=== PATIENT | male | born 1945 | race African-American/Black ===

== ENCOUNTER 2017-08-27 12:58 | Emergency (ER) | payer OTHER ==
[2017-08-27 13:20] VITALS: BP 148/75; PULSE 90; TEMP 98.4; BMI 24.7
--- NOTE | 2017-08-27 15:17 | PDOC ---
History of Present Illness - General Chief Complaint: Pain Stated Complaint: LT LEG PAIN Time Seen by Provider: 08/27/17 14:35 History Source: Patient Exam Limitations: No Limitations - History of Present Illness Initial Comments: 08/27/17 15:11 c/o left ankle pain for 2 days, may have twisted it. Pt reports twisted ankle 2 months ago at work, may have re-inured. Pt denies fall or fever or chills. no PMHX. Occurred: reports: yesterday Severity: Yes: mild Lower Extremity Pain Location: left: ankle (no swelling no deformity ) Past History - Past Medical History Allergies/Adverse Reactions: Allergies Allergy/AdvReac Type Severity Reaction Status Date / Time No Known Allergies Allergy Verified 08/27/17 13:17 Home Medications: Ambulatory Orders NK [No Known Home Medication] 08/27/17 COPD: No Other medical history: DENIES. - Suicide/Smoking/Psychosocial Hx Smoking History: Never smoked Have you smoked in the past 12 months: No Information on smoking cessation initiated: No Review of Systems - Review of Systems Able to Perform ROS?: Yes Is the patient limited Italian proficient: No Constitutional: No: Symptoms Reported HEENTM: No: Symptoms Reported Respiratory: No: Symptoms reported Cardiac (ROS): No: Symptoms Reported ABD/GI: No: Symptoms Reported : No: Symptoms Reported Musculoskeletal: Yes: Symptoms Reported *Physical Exam - Vital Signs Last Vital Signs Temp Pulse Resp BP Pulse Ox 98.4 F 90 19 148/75 98 08/27/17 13:17 08/27/17 13:17 08/27/17 13:17 08/27/17 13:17 08/27/17 13:17 - Physical Exam General Appearance: Yes: Nourished, Appropriately Dressed HEENT: positive: EOMI, KHLOE Musculoskeletal: positive: Normal Inspection Extremity: positive: Normal Capillary Refill, Normal Inspection, Normal Range of Motion, Other (non tender neg ttp pain is with walking to the posterior ankle ). negative: Tender Integumentary: positive: Normal Color, Dry, Warm Neurologic: positive: Fully Oriented, Alert, Normal Mood/Affect, Normal Response , Motor Strength 5/5 Procedures - Splinting German Bandage: yes, 3" (left ankle ) ED Treatment Course - RADIOLOGY Radiology Studies Ordered: Category Date Time Status ANKLE & FOOT-LEFT* [RAD] Stat Radiology 08/27/17 14:36 Taken Medical Decision Making - Medical Decision Making 08/27/17 15:17 cc: left ankle pain will get xray to r/o fracture no swelling no deformity previous left ankle injury 2 months ago pt has no calf swelling or calf pain no redness or warmth to the extremity nv intact *DC/Admit/Observation/Transfer Diagnosis at time of Disposition: Ankle pain, left - Discharge Dispostion Disposition: HOME Condition at time of disposition: Good - Referrals Referrals: Clemente Sepulveda MD [Staff Physician] - - Patient Instructions Additional Instructions: please follow with the orthopedist next week and bring the xray report with you keep the german wrap in place except to bathe you can elevate the ankle and apply warm compresses to the area take tylenol for pain as needed - Post Discharge Activity
== END 2017-08-27 16:22 | disposition home or self-care (01) ==
LOC: JERFT 12:58
DX: M25.571 Pain in right ankle and joints of right foot (principal)
CPT/HCPCS: 73610-TC-LT; 73630-TC-LT; 99281-25

== ENCOUNTER 2022-12-30 13:43 | Observation (INO) | payer OTHER ==
[2022-12-30] MEDS ORDERED: MAG HYDROX/AL HYDROX/SIMETH 30 ML UNIT-DOSE CUP PO ONE (14:25)
[2022-12-30] MEDS ORDERED: FAMOTIDINE 20 MG/50 ML IVPB 20 MG/50 ML MG IVPB ONE ×2 (14:25→14:36)
[2022-12-30] MEDS ORDERED: MAG HYDROX/AL HYDROX/SIMETH 30 ML UNIT-DOSE CUP ONE (14:36)
[2022-12-30] MEDS ORDERED: TRIMETHOBENZAMIDE HCL 200MG/2ML INJ IM ONE ×2 (14:39→14:47)
[2022-12-30] MEDS: LACTATED RINGERS SOLUTION 1,000 ML/1,000 ML INFUS.BAG IV SCH (14:42)
[2022-12-30 15:21] LABS: BASO % 0.2 % (0-2.0); EOS % 0.5 % (0-4.5); HEMATOCRIT 36.1 % (35.4-49); HEMOGLOBIN 12.8 GM/dL (11.7-16.9); LYMPH % 23.4 % (8-40); MCH 35.1 pg (25.7-33.7); MCHC 35.4 g/dl (32.0-35.9); MEAN CELL VOLUME 99.1 fl (80-96); MEAN PLT VOLUME 8.2 fl (7.5-11.1); MONO % 10.8 % (3.8-10.2); NEUT % 65.1 % (42.8-82.8); PLATELET COUNT 193 10^3/uL (134-434); RBC 3.64 M/mm3 (4.00-5.60); RDW 13.3 % (11.9-15.9); WHITE BLOOD COUNT 5.5 K/mm3 (4.0-10.0)
[2022-12-30 15:28] LABS: INR 1.02 (0.83-1.09); PROTHROMBIN TIME (PATIENT) 11.8 SEC (9.7-13.0)
[2022-12-30 15:30] LABS: ACTIVATED PTT 32.2 SECONDS (25.2-36.5)
[2022-12-30 15:40] LABS: CHLORIDE 83 mmol/L (98-107); SODIUM 126 mmol/L (136-145)
[2022-12-30 15:42] LABS: CALCIUM 8.6 mg/dL (8.5-10.1)
[2022-12-30 15:43] LABS: ALBUMIN 3.6 g/dl (3.4-5.0); BLOOD UREA NITROGEN 5.5 mg/dL (7-18); CO2 32 mmol/L (21-32); GLUCOSE,RANDOM 112 mg/dL (74-106); LIPASE 226 U/L (73-393); MAGNESIUM 1.1 mg/dL (1.8-2.4)
[2022-12-30 15:46] LABS: CREATININE 0.8 mg/dL (0.55-1.3); SGOT/AST 85 U/L (15-37); SGPT/ALT 52 U/L (13-61)
[2022-12-30 15:47] LABS: BILIRUBIN,TOTAL 1.2 mg/dL (0.2-1)
[2022-12-30 15:48] LABS: TOT PROT 7.5 g/dl (6.4-8.2)
[2022-12-30] MEDS ORDERED: MAGNESIUM SULF 50% (8.12 MEQ/2 ML-1 GM VIAL) IVPB ONE (15:48)
[2022-12-30 15:49] LABS: ALK PHOS 100 U/L (45-117)
[2022-12-30 15:57] LABS: PH,URINE 7.5 (5.0-8.0); URINE APPEARANCE CLEAR; URINE BILIRUBIN NEGATIVE (NEGATIVE); URINE COLOR YELLOW; URINE GLUCOSE (UA) NEGATIVE (NEGATIVE); URINE KETONE NEGATIVE (NEGATIVE); URINE LEUK ESTERASE NEGATIVE (NEGATIVE); URINE NITRITE NEGATIVE (NEGATIVE); URINE PROTEIN NEGATIVE (NEGATIVE); URINE UROBILINOGEN 0.2 mg/dL (0.2-1.0)
[2022-12-30 16:00] LABS: ANION GAP 11 MMOL/L (8-16)
[2022-12-30] MEDS ORDERED: CEFTRIAXONE 1,000 MG in DEXTROSE 5%-WATER - 50 ML IVPB ONE (16:12)
[2022-12-30] MEDS ORDERED: DOXYCYCLINE INJECTION 100 MG in DEXTROSE 5%-WATER 100 ML IVPB ONE (16:13)
[2022-12-30] MEDS ORDERED: MAGNESIUM SULFATE IN WATER 2 GM/50 ML IVPB IVPB ONE (16:15)
[2022-12-30] MEDS ORDERED: POTASSIUM CHLORIDE ORAL LIQUID 20 MEQ/15 ML PO ONE ×2 (16:15→18:20)
[2022-12-30] MEDS ORDERED: KCL 10 MEQ IVPB 10 MEQ/100 ML INFUS.BAG IVPB ONE ×3 (17:11→20:02)
[2022-12-30] MEDS ORDERED: POTASSIUM CHLORIDE ORAL LIQUID 20 MEQ/15 ML ONE ×2 (17:11→18:20)
[2022-12-30] MEDS: KCL 10 MEQ IVPB 10 MEQ/100 ML INFUS.BAG IVPB SCH ×3 (17:30→20:43)
[2022-12-30] MEDS ORDERED: LACTATED RINGERS SOLUTION 1,000 ML/1,000 ML INFUS.BAG IV SCH (18:00)
[2022-12-30 21:02] LABS: ALBUMIN 3.7 g/dl (3.4-5.0); BLOOD UREA NITROGEN 5.1 mg/dL (7-18); CALCIUM 9.1 mg/dL (8.5-10.1)
[2022-12-30 21:05] LABS: CREATININE 0.9 mg/dL (0.55-1.3)
[2022-12-30 21:07] LABS: BILIRUBIN,TOTAL 1.3 mg/dL (0.2-1); TOT PROT 7.7 g/dl (6.4-8.2)
[2022-12-31 07:28] LABS: BASO % 0.6 % (0-2.0); HEMATOCRIT 36.3 % (35.4-49); HEMOGLOBIN 12.6 GM/dL (11.7-16.9); LYMPH % 16.5 % (8-40); MCH 35.2 pg (25.7-33.7); MCHC 34.8 g/dl (32.0-35.9); MEAN CELL VOLUME 101.1 fl (80-96); MEAN PLT VOLUME 7.8 fl (7.5-11.1); MONO % 6.6 % (3.8-10.2); NEUT % 75.3 % (42.8-82.8); PLATELET COUNT 181 10^3/uL (134-434); RBC 3.59 M/mm3 (4.00-5.60); RDW 13.5 % (11.9-15.9); WHITE BLOOD COUNT 6.3 K/mm3 (4.0-10.0)
[2022-12-31 07:45] LABS: BLOOD UREA NITROGEN 8.6 mg/dL (7-18)
[2022-12-31 07:47] LABS: CALCIUM 8.8 mg/dL (8.5-10.1)
[2022-12-31 07:49] LABS: CREATININE 0.8 mg/dL (0.55-1.3)
[2022-12-31] MEDS: LACTATED RINGERS SOLUTION 1,000 ML/1,000 ML INFUS.BAG IV SCH (17:49)
[2022-12-31 20:33] VITALS: BMI 22.4
[2023-01-01 08:08] VITALS: RESP 20
[2023-01-01] MEDS ORDERED: amLODIPine BESYLATE 5 MG TABLET (FP) PO SCH (10:15)
[2023-01-01 10:25] LABS: BASO % 0.9 % (0-2.0); HEMATOCRIT 37.1 % (35.4-49); HEMOGLOBIN 12.7 GM/dL (11.7-16.9); LYMPH % 30.2 % (8-40); MCH 35.1 pg (25.7-33.7); MCHC 34.3 g/dl (32.0-35.9); MEAN CELL VOLUME 102.5 fl (80-96); MEAN PLT VOLUME 7.9 fl (7.5-11.1); NEUT % 58.9 % (42.8-82.8); PLATELET COUNT 173 10^3/uL (134-434); RBC 3.62 M/mm3 (4.00-5.60); WHITE BLOOD COUNT 5.7 K/mm3 (4.0-10.0)
[2023-01-01 10:44] LABS: BLOOD UREA NITROGEN 15.5 mg/dL (7-18); CALCIUM 8.6 mg/dL (8.5-10.1)
[2023-01-01 10:45] LABS: ALBUMIN 3.4 g/dl (3.4-5.0); MAGNESIUM 1.7 mg/dL (1.8-2.4)
[2023-01-01 10:48] LABS: CREATININE 0.8 mg/dL (0.55-1.3)
[2023-01-01 10:49] LABS: ALBUMIN 3.4 g/dl (3.4-5.0); BILIRUBIN,TOTAL 0.5 mg/dL (0.2-1); TOT PROT 7.2 g/dl (6.4-8.2)
[2023-01-01 10:52] LABS: BILIRUBIN,DIRECT 0.2 mg/dL (0.0-0.2)
[2023-01-01 10:54] LABS: BILIRUBIN,TOTAL 0.6 mg/dL (0.2-1)
[2023-01-01] MEDS ORDERED: MAGNESIUM OXIDE 400 MG TABLET (FP) PO ONE (13:29)
[2023-01-01] MEDS ORDERED: NAPH,MB-DB/K PH,MBDB POWDER PACKET PO ONE (13:31)
[2023-01-01 14:24] VITALS: BP 150/89; PULSE 72; TEMP 98.2
== END 2023-01-01 18:41 | disposition home or self-care (01) ==
LOC: JER 13:43 → JERBED 16:42 → J4W 12-31 20:02 → J7W 01-01 17:26 → J4W 01-01 17:28
PROVIDERS: ADMIT Internal Medicine; ATTEND Internal Medicine
PROC: 3E03329 Introduction of Other Anti-infective into Peripheral Vein, Percutaneous Approach (ICD-10-PCS; principal; 2022-12-30)
PROC: 3E023GC Introduction of Other Therapeutic Substance into Muscle, Percutaneous Approach (ICD-10-PCS; 2022-12-30)
DX: K52.9 Noninfective gastroenteritis and colitis, unspecified (principal); R94.31 Abnormal electrocardiogram [ECG] [EKG]; E87.6 Hypokalemia; E87.1 Hypo-osmolality and hyponatremia; Z89.022 Acquired absence of left finger(s)
CPT/HCPCS: 0241U-QW; 36415; 71046-TC-FY; 76705-TC; 80048; 80053; 80076; 81003; 82962; 83690; 83735; 83930; 83935; 84100; 84132; 84484; 85025; 85610; 85730; 87086; 93005; 93010; 93308; 99285-25; G0378